=== PATIENT | male | born 1970 | race Caucasian/White ===

== ENCOUNTER → 2016-06-07 | Outpatient (CLI) | payer BC ==
[~2016-06-07] MED LIST: [UNRECOGNIZED DRUG - REMARK]; [UNRECOGNIZED DRUG - REMARK]
== END | disposition home or self-care (01) ==
LOC: C.PATH 13:54
PROVIDERS: ATTEND Dermatology
DX: D23.61 Other benign neoplasm of skin of right upper limb, including shoulder (principal); L57.0 Actinic keratosis

== ENCOUNTER 2016-12-29 23:34 | Emergency (ER) | payer BC ==
[~2016-12-29] VITALS: Ht 177.8 cm; Wt 105.9 kg
[2016-12-29 23:37] VITALS: TEMP 36.7; Ht 177.8 cm; Wt 105.9 kg
[2016-12-30] MEDS ORDERED: AMOXICILLIN 500 MG CAP PO STA (00:04)
[2016-12-30] MEDS ORDERED: AMOXICILLIN 250 MG CAP PO STA (00:18)
--- NOTE | 2016-12-30 00:21 | EMERGENCY ROOM VISIT NOTE ---
History Report prepared by Magaly: Mauricio Valdovinos Under the Supervision of: Dr. Mariah Farooq D.O. First contact with patient: 23:52 Chief Complaint: EAR PAIN Stated Complaint: EAR PAIN History of Present Illness The patient is a 46 year old male who presents to the Emergency Room with complaints of constant bilateral ear pain following a flight beginning last night. The patient states that his ears begun to swell and hurt following a flight from [place], but states that his symptoms resolved quickly. He reports that he began to experience ear swelling and pain again last night that is unlike previous infections that he has had. He notes that he had a cough during this week. He denies fevers, chills, or any previous history of ear infections or eustachian tubes as a child. Source of History: patient Onset: Last night Position: ear (bilateral) Quality: other (swelling and pain) Timing: constant Associated Symptoms: No fevers, No chills Note: He denies any previous history of ear infections Review of Systems See HPI for pertinent positives & negatives. A total of 6 systems reviewed and were otherwise negative. Past Medical & Surgical Medical Problems: (1) Umbilical hernia Family History No pertinent family history stated Social History Smoking Status: Never Smoker Marital Status: Housing Status: lives with significant other Occupation Status: employed Current/Historical Medications Scheduled Amoxicillin (Amoxicillin), 1 TAB PO BID Miscellaneous Medications [Levoxyl-Unknown] [Lipitor-Unknown] Allergies Coded Allergies: No Known Allergies (Verified Allergy, Unknown, 04/10/07) Physical Exam Vital Signs Date Time Temp Pulse Resp B/P (MAP) Pulse Ox O2 Delivery O2 Flow Rate FiO2 12/30/16 00:33 75 18 135/74 96 12/29/16 23:37 36.7 77 18 140/96 96 Room Air Physical Exam GENERAL: alert, well appearing, well nourished, no distress, non-toxic EYE EXAM: normal conjunctiva, PERRL and EOM's grossly intact. EAR: TMs bilaterally erythematous and bulging, no edema along the canal, no mastoid tenderness. OROPHARYNX: no exudate, no erythema, lips, buccal mucosa, and tongue normal and mucous membranes are moist NECK: supple, no nuchal rigidity, no adenopathy, non-tender SKIN: no rashes and no bruising UPPER EXTREMITIES: upper extremities are grossly normal. LOWER EXTREMITIES: No pitting edema. NEURO EXAM: Normal sensorium, cranial nerves II-XII grossly intact, normal speech, no gross weakness of arms, no gross weakness of legs. Medical Decision & Procedures Medications Administered Medications (Trade) Dose Ordered Sig/Kristin Route Start Time Stop Time Status Last Admin Dose Admin Amoxicillin (Amoxil Cap) 750 mg NOW STAT PO 12/30/16 00:18 12/30/16 00:21 DC 12/30/16 00:24 750 MG ED Course 2359: The patient was evaluated in room C3. A complete history and physical exam was performed. 0004: Amoxil Cap 875mg PO. 0010: Upon reevaluation, the patient is feeling better. I discussed the findings and the treatment plan with the patient. He verbalizes agreement and understanding. The patient was discharged home. Medical Decision Differential diagnosis includes otitis media, sinusitis, otitis externa, pharyngitis, URI, mastoiditis. No evidence of acute sinusitis/mastoiditis, doubt deep space infection, strep pharyngitis, sloop captain, AOE. No evidence of rupture. Pt well appearing here. Discussed tylenol/ibuprofen for pain and antibiotics. Medication Reconcilliation Current Medication List: was personally reviewed by me Blood Pressure Screening Patient's blood pressure: Elevated blood pressure Blood pressure disposition: Elevated BP felt to be situational Impression Primary Impression: Otitis media Additional Impression: Nasal congestion Scribe Attestation The scribe's documentation has been prepared under my direction and personally reviewed by me in its entirety. I confirm that the note above accurately reflects all work, treatment, procedures, and medical decision making performed by me. Departure Information Dispostion Home / Self-Care Prescriptions Amoxicillin (Amoxicillin) 875 Mg Tab 1 TAB PO BID for 10 Days, TABS Prov: Mariah Farooq DO 12/30/16 Referrals Shun Bhatt DO (PCP) Patient Instructions My [facility] Additional Instructions Please take the antibiotics as prescribed. Please have your family doctor recheck your ears next week. You may continue using the decongestant as needed. Please drink plenty of water. If you have any worsening pain, develop fevers, vomiting, or have other concerns, please return to the emergency room. Problem Qualifiers Primary Impression: Otitis media Otitis media type: unspecified Laterality: bilateral Qualified Codes: H66.93 - Otitis media, unspecified, bilateral
[2016-12-30] MEDS ORDERED: AMX875 PO (00:24)
[2016-12-30 00:33] VITALS: BP 135/74; PULSE 75; O2SAT 96
== END 2016-12-30 00:34 | disposition home or self-care (01) ==
LOC: C.EDB 23:35 → C.EDC 12-30 00:34
DX: H66.93 Otitis media, unspecified, bilateral (principal); R09.81 Nasal congestion